=== PATIENT | female | born 1995 | race African-American/Black ===

== ENCOUNTER 2017-11-11 23:47 | Emergency (ER) | payer MEDICAID ==
[~2017-11-11] VITALS: Ht 160 cm; Wt 81.3 kg
[2017-11-12 01:17] LABS: BASOPHILS % 0.6 % (0.0-2.0); EOSINOPHILS % 1.1 % (0.0-5.0); HEMATOCRIT. 37.1 % (36.0-48.0); HEMOGLOBIN. 12.1 g/dL (12.0-16.0); LYMPHOCYTES % 31.1 % (20.0-50.0); MEAN CORPUSCULAR HEMOGLOBIN 27.1 pg (28.0-32.0); MEAN CORPUSCULAR VOLUME 83.6 fL (81.0-99.0); MEAN PLATELET VOLUME 11.2 fl (7.4-10.4); MONOCYTES % 9.4 % (2.0-8.0); NEUTROPHILS % 57.8 % (40.0-76.0); PLATELET 154 x1000/uL (130-400); RED BLOOD CELL COUNT 4.45 mill/uL (4.2-5.4); RED CELL DISTRIBUTION WIDTH 13.6 % (11.6-14.6)
[2017-11-12 01:19] LABS: CHLORIDE 106 mEq/L (98-107)
[2017-11-12 01:30] LABS: B-HCG QUANTITATIVE < 1 mIU/mL (<3)
[2017-11-12 01:34] LABS: CLARITY URINE CLEAR (CLEAR); COLOR URINE YELLOW (YELLOW); KETONES URINE NEGATIVE (NEGATIVE); LEUKOCYTE ESTERASE URINE 2+ (NEGATIVE); NITRITE URINE NEGATIVE (NEGATIVE); OCCULT BLOOD URINE NEGATIVE (NEGATIVE); PROTEIN URINE NEGATIVE (NEGATIVE); SPECIFIC GRAVITY URINE 1.028 (1.005-1.030)
[2017-11-12 02:11] LABS: *AMPHETAMINES SCREEN URINE NEGATIVE (NEGATIVE); *BARBITURATES SCREEN URINE NEGATIVE (NEGATIVE); *BENZODIAZEPINES SCREEN URINE NEGATIVE (NEGATIVE); *COCAINE SCREEN URINE NEGATIVE (NEGATIVE); METHADONE URINE SCREEN NEGATIVE (NEGATIVE); OPIATES URINE SCREEN NEGATIVE (NEGATIVE)
[2017-11-12 02:12] LABS: CANNABINOID URINE SCREEN NEGATIVE (NEGATIVE); PHENCYCLIDINE URINE SCREEN NEGATIVE (NEGATIVE)
[2017-11-12 02:50] VITALS: BP 99/55
== END 2017-11-12 04:15 | disposition home or self-care (01) ==
LOC: ER 23:47
DX: N39.0 Urinary tract infection, site not specified (principal); N93.9 Abnormal uterine and vaginal bleeding, unspecified
CPT/HCPCS: 36415; 76830; 76856; 80053; 80305; 81003; 81025; 83690; 84702; 85025; 87077; 87086; 99285; Z7610

== ENCOUNTER 2018-12-04 20:55 | Emergency (ER) | payer MEDICAID ==
[~2018-12-04] VITALS: Ht 160 cm; Wt 109.0 kg
[2018-12-04 23:44] VITALS: BP 130/82
== END 2018-12-04 23:45 | disposition home or self-care (01) ==
LOC: ER 23:42
DX: J06.9 Acute upper respiratory infection, unspecified (principal)
CPT/HCPCS: 99283

== ENCOUNTER 2021-10-23 02:47 | Emergency (ER) | payer SELFPAY ==
[~2021-10-23] VITALS: Ht 160 cm; Wt 104.0 kg
[2021-10-23 03:46] VITALS: BP 129/66
[2021-10-23] MEDS ORDERED: FAMOTIDINE 20MG TABLET PO ONE (04:15)
[2021-10-23] MEDS ORDERED: PREDNISONE 20MG TABLET PO ONE (04:15)
[2021-10-23] MEDS ORDERED: DIPHENHYDRAMINE 25MG CAPSULE PO ONE (04:15)
[2021-10-23] MEDS ORDERED: DIPH25CA83 MT (05:19)
[2021-10-23] MEDS ORDERED: P20 MT (05:19)
[2021-10-23] MEDS ORDERED: FAMO-135 MT (05:19)
== END 2021-10-23 05:30 | disposition home or self-care (01) ==
LOC: ER 02:47
DX: L23.9 Allergic contact dermatitis, unspecified cause (principal)
CPT/HCPCS: 99284; J7512; Q0163